=== PATIENT | female | born 1975 | race Caucasian/White ===

== ENCOUNTER 2019-08-31 05:32 | Inpatient (IN) | payer MEDICARE, MEDICAID ==
[2019-08-31] VITALS (48 sets, daily range): BP systolic 71–176; BP diastolic 35–86
[~2019-08-31] VITALS: Ht 157.5 cm; Wt 87.1 kg
[~2019-08-31 05:32] MED LIST: AMIT100T2 PO; ATOR20TA65 PO; DULA1.5P SQ; GABA800T97 PO; HYDR-4009 PO; INSU100I22 SQ; LEVO25TA7 PO; LISI-186 PO; LORA10TA7 PO; METF-416 PO; METO10TA3 PO; PANT40TA4 PO
[2019-08-31] MEDS ORDERED: NORMAL SALINE 0.9% 10 ML SYR ONE (06:13)
[2019-08-31] MEDS ORDERED: LIDOCAINE HCL/EPINEPHRINE 1%-EPI 1:100,000 20 ML VIAL ONE (06:14)
[2019-08-31] MEDS ORDERED: THROMBIN (BOVINE) 5000 UNITS/VIAL TOP ONE (06:14)
[2019-08-31] MEDS ORDERED: BACITRACIN 50,000 UNITS/VIAL ONE (06:14)
[2019-08-31] MEDS ORDERED: FENTANYL CITRATE/PF 50MCG/ML 2ML VIAL ONE (06:43)
[2019-08-31] MEDS ORDERED: MIDAZOLAM HCL 2 MG/2 ML VIAL ONE (06:44)
[2019-08-31] MEDS ORDERED: ROCURONIUM BROMIDE 10MG/ML VIAL 5ML IV ONE ×2 (06:46→07:43)
[2019-08-31] MEDS ORDERED: PROPOFOL 200MG/20ML VIAL IV ONE (06:46)
[2019-08-31] MEDS ORDERED: SUCCINYLCHOLINE CHLORIDE 200MG/10ML IV ONE (06:46)
[2019-08-31] MEDS ORDERED: LIDOCAINE HCL/PF 1% 10 MG/ML 5ML VIAL ONE (06:47)
[2019-08-31] MEDS ORDERED: HYDRALAZINE 20MG/ML VIAL ONE (06:50)
[2019-08-31] MEDS ORDERED: SODIUM CHLORIDE 0.9% 10ML VIAL ONE ×3 (06:50→06:53)
[2019-08-31] MEDS ORDERED: EPHEDRINE SULFATE 50MG/ML VIAL ONE ×2 (06:52→08:29)
[2019-08-31 06:53] LABS: HCG SCREEN NEGATIVE
[2019-08-31] MEDS ORDERED: CEFAZOLIN SODIUM 1000MG/VIAL ONE (06:53)
[2019-08-31] MEDS ORDERED: MORPHINE SULFATE 4 MG/ML CPJ (NOT FOR IM USE) IV PRN (07:15)
[2019-08-31] MEDS ORDERED: ESMOLOL HCL 10MG/ML 10ML VIAL IV ONE (07:45)
[2019-08-31] MEDS ORDERED: LABETALOL HCL 5MG/ML VIAL 20ML IV ONE (07:46)
[2019-08-31] MEDS ORDERED: DEXAMETHASONE 4MG/ML 1ML VIAL ONE (08:03)
[2019-08-31] MEDS ORDERED: GLYCOPYRROLATE 0.2 MG/ML 2ML VIAL ONE ×2 (08:17→08:27)
[2019-08-31] MEDS ORDERED: NEOSTIGMINE METHYLSULFATE 1MG/ML 10 ML VIAL ONE (08:17)
[2019-08-31] MEDS ORDERED: PHENYLEPHRINE HCL 10 MG/ML 1ML (IV VIAL) IV ONE (08:25)
[2019-08-31] MEDS ORDERED: NICARDIPINE 100 MG in SODIUM CHLORIDE 0.9% 60 ML IV PRN (10:15)
[2019-08-31] MEDS ORDERED: HYDROMORPHONE HCL/PF 2MG/ML CPJ IV PRN (10:30)
[2019-08-31] MEDS: DEXT 5%/LACTATED RINGERS 1,000 ML IV SCH ×2 (11:00→17:14)
[2019-08-31] MEDS ORDERED: ONDANSETRON INJ IV PRN (11:15)
[2019-08-31] MEDS ORDERED: MORPHINE PCA 50MG/50ML IV PRN (11:15)
[2019-08-31] MEDS ORDERED: DIPHENHYDRAMINE INJ IV PRN (11:15)
[2019-08-31] MEDS ORDERED: NALOXONE INJ IV PRN (11:15)
[2019-08-31] MEDS: HYDRALAZINE 20MG/ML VIAL IV SCH ×4 (13:25→23:43)
[2019-08-31] MEDS: PANTOPRAZOLE SODIUM 40 MG/VIAL IV SCH (13:38)
[2019-08-31] MEDS ORDERED: CEFAZOLIN SODIUM 1000MG/VIAL IV SCH (14:00)
[2019-08-31] MEDS: CEFAZOLIN 1000MG PREMIX 50 ML IV SCH (15:30)
[2019-08-31] MEDS: HYDROMORPHONE HCL/PF 2MG/ML CPJ IV PRN ×3 (15:42→23:43)
[2019-08-31] MEDS ORDERED: DEXTROSE 50% WATER 50ML SYRINGE IV PRN (16:00)
[2019-08-31] MEDS: BLOOD SUGAR DIAGNOSTIC STRIP TEST SCH ×2 (17:14→21:27)
[2019-08-31] MEDS: METFORMIN HCL 500MG TABLET PO SCH (17:15)
[2019-08-31] MEDS: OXYCODONE HCL/ACETAMINOPHEN 5/325MG TABLET PO PRN ×2 (17:15→21:33)
[2019-08-31] MEDS: INSULIN LISPRO 100 UNITS/ML SUBCUT SCH ×2 (17:16→21:00)
[2019-08-31 20:24] LABS: CHLORIDE 110 mEq/L (98-107)
[2019-08-31 20:30] LABS: BASOPHILS % 0.3 % (0.0-2.0); HEMATOCRIT. 32.3 % (36.0-48.0); HEMOGLOBIN. 10.7 g/dL (12.0-16.0); LYMPHOCYTES % 11.5 % (20.0-50.0); MEAN CORPUSCULAR HEMOGLOBIN 27.6 pg (28.0-32.0); MEAN CORPUSCULAR VOLUME 83.1 fL (81.0-99.0); MEAN PLATELET VOLUME 9.3 fl (7.4-10.4); MONOCYTES % 6.2 % (2.0-8.0); PLATELET 196 x1000/uL (130-400); RED BLOOD CELL COUNT 3.89 mill/uL (4.2-5.4); RED CELL DISTRIBUTION WIDTH 14.6 % (11.6-14.6)
[2019-08-31] MEDS: METOCLOPRAMIDE HCL 10MG TABLET PO SCH (21:27)
[2019-08-31] MEDS: ATORVASTATIN CALCIUM 20MG TABLET PO SCH (21:27)
[2019-08-31] MEDS: AMITRIPTYLINE 25MG TABLET PO SCH (21:27)
[2019-09-01] VITALS (74 sets, daily range): BP systolic 71–151; BP diastolic 31–118
[2019-09-01] MEDS: CEFAZOLIN 1000MG PREMIX 50 ML IV SCH (00:03)
[2019-09-01] MEDS: DEXT 5%/LACTATED RINGERS 1,000 ML IV SCH ×3 (02:06→17:47)
[2019-09-01] MEDS: OXYCODONE HCL/ACETAMINOPHEN 5/325MG TABLET PO PRN ×5 (02:12→22:41)
[2019-09-01] MEDS: HYDRALAZINE 20MG/ML VIAL IV SCH ×5 (03:27→19:54)
[2019-09-01] MEDS: HYDROMORPHONE HCL/PF 2MG/ML CPJ IV PRN ×6 (03:53→20:52)
[2019-09-01] MEDS: BLOOD SUGAR DIAGNOSTIC STRIP TEST SCH ×4 (06:01→20:17)
[2019-09-01] MEDS: LEVOTHYROXINE SODIUM 25MCG TABLET PO SCH (06:01)
[2019-09-01] MEDS: METFORMIN HCL 500MG TABLET PO SCH ×2 (06:01→17:47)
[2019-09-01] MEDS: INSULIN LISPRO 100 UNITS/ML SUBCUT SCH ×4 (06:06→20:17)
[2019-09-01] MEDS: LISINOPRIL 5MG TABLET PO SCH (09:00)
[2019-09-01] MEDS: PANTOPRAZOLE SODIUM 40 MG/VIAL IV SCH (10:36)
[2019-09-01] MEDS: LORATADINE 10MG TABLET PO SCH (10:36)
[2019-09-01] MEDS ORDERED: MORPHINE SULFATE 2 MG/ML CPJ (NOT FOR IM USE) IV NR (11:15)
[2019-09-01] MEDS: ATORVASTATIN CALCIUM 20MG TABLET PO SCH (20:06)
[2019-09-01] MEDS: METOCLOPRAMIDE HCL 10MG TABLET PO SCH (20:06)
[2019-09-01] MEDS: AMITRIPTYLINE 25MG TABLET PO SCH (20:07)
[2019-09-01] MEDS: DIPHENHYDRAMINE 25MG CAPSULE PO PRN (20:18)
[2019-09-02] VITALS (34 sets, daily range): BP systolic 95–172; BP diastolic 36–109
[2019-09-02] MEDS: HYDROMORPHONE HCL/PF 2MG/ML CPJ IV PRN ×7 (00:36→21:01)
[2019-09-02] MEDS: DEXT 5%/LACTATED RINGERS 1,000 ML IV SCH (00:44)
[2019-09-02] MEDS: OXYCODONE HCL/ACETAMINOPHEN 5/325MG TABLET PO PRN ×3 (02:32→14:22)
[2019-09-02] MEDS: HYDRALAZINE 20MG/ML VIAL IV SCH ×5 (03:30→16:00)
[2019-09-02 05:39] LABS: BASOPHILS % 0.4 % (0.0-2.0); EOSINOPHILS % 0.3 % (0.0-5.0); HEMATOCRIT. 30.9 % (36.0-48.0); HEMOGLOBIN. 10.4 g/dL (12.0-16.0); LYMPHOCYTES % 27.4 % (20.0-50.0); MEAN CORPUSCULAR HEMOGLOBIN 28.1 pg (28.0-32.0); MEAN CORPUSCULAR VOLUME 83.2 fL (81.0-99.0); MEAN PLATELET VOLUME 8.9 fl (7.4-10.4); MONOCYTES % 7.5 % (2.0-8.0); NEUTROPHILS % 64.4 % (40.0-76.0); PLATELET 170 x1000/uL (130-400); RED BLOOD CELL COUNT 3.71 mill/uL (4.2-5.4); RED CELL DISTRIBUTION WIDTH 14.4 % (11.6-14.6)
[2019-09-02] MEDS: ONDANSETRON HCL 4MG/2ML INJ IV PRN ×2 (05:47→21:42)
[2019-09-02 05:50] LABS: CHLORIDE 104 mEq/L (98-107)
[2019-09-02] MEDS: BLOOD SUGAR DIAGNOSTIC STRIP TEST SCH ×4 (06:20→21:36)
[2019-09-02] MEDS: INSULIN LISPRO 100 UNITS/ML SUBCUT SCH ×4 (06:20→21:35)
[2019-09-02] MEDS: LEVOTHYROXINE SODIUM 25MCG TABLET PO SCH (06:23)
[2019-09-02] MEDS: METFORMIN HCL 500MG TABLET PO SCH ×2 (06:23→18:48)
[2019-09-02] MEDS: LISINOPRIL 5MG TABLET PO SCH (09:00)
[2019-09-02] MEDS: LORATADINE 10MG TABLET PO SCH (10:48)
[2019-09-02] MEDS: DIPHENHYDRAMINE 25MG CAPSULE PO PRN (10:49)
[2019-09-02] MEDS: PANTOPRAZOLE SODIUM 40 MG/VIAL IV SCH (12:25)
[2019-09-02] MEDS ORDERED: OXYCODONE HCL/ACETAMINOPHEN 5/325MG TABLET PO PRN (16:30)
[2019-09-02] MEDS ORDERED: CLONIDINE 0.1MG TABLET PO PRN (18:30)
[2019-09-02] MEDS: ATORVASTATIN CALCIUM 20MG TABLET PO SCH (21:01)
[2019-09-02] MEDS: AMITRIPTYLINE 25MG TABLET PO SCH (21:01)
[2019-09-02] MEDS: METOCLOPRAMIDE HCL 10MG TABLET PO SCH (21:01)
[2019-09-02] MEDS ORDERED: POTASSIUM CHLORIDE INJ 40 MEQ in DEXT 5% WATER 500 ML IV NR (21:30)
[2019-09-03] VITALS: BP 96/43
[2019-09-03] MEDS: OXYCODONE HCL/ACETAMINOPHEN 5/325MG TABLET PO PRN ×2 (01:00→22:28)
[2019-09-03 04:00] VITALS: BP 111/59
[2019-09-03] MEDS: HYDROMORPHONE HCL/PF 2MG/ML CPJ IV PRN ×4 (04:09→18:53)
[2019-09-03] MEDS: LEVOTHYROXINE SODIUM 25MCG TABLET PO SCH (06:28)
[2019-09-03] MEDS: INSULIN LISPRO 100 UNITS/ML SUBCUT SCH ×4 (06:40→21:00)
[2019-09-03] MEDS: BLOOD SUGAR DIAGNOSTIC STRIP TEST SCH ×4 (06:40→21:18)
[2019-09-03 06:52] LABS: BASOPHILS % 0.4 % (0.0-2.0); HEMATOCRIT. 29.9 % (36.0-48.0); HEMOGLOBIN. 9.9 g/dL (12.0-16.0); LYMPHOCYTES % 33.7 % (20.0-50.0); MEAN CORPUSCULAR HEMOGLOBIN 27.5 pg (28.0-32.0); MEAN CORPUSCULAR VOLUME 83.3 fL (81.0-99.0); MEAN PLATELET VOLUME 8.6 fl (7.4-10.4); MONOCYTES % 6.9 % (2.0-8.0); PLATELET 157 x1000/uL (130-400); RED BLOOD CELL COUNT 3.59 mill/uL (4.2-5.4); RED CELL DISTRIBUTION WIDTH 14.1 % (11.6-14.6)
[2019-09-03 06:54] LABS: CHLORIDE 104 mEq/L (98-107)
[2019-09-03 08:00] VITALS: BP 116/56
[2019-09-03] MEDS: METFORMIN HCL 500MG TABLET PO SCH ×2 (08:51→17:05)
[2019-09-03] MEDS: LORATADINE 10MG TABLET PO SCH (08:52)
[2019-09-03] MEDS: PANTOPRAZOLE SODIUM 40 MG/VIAL IV SCH (08:52)
[2019-09-03] MEDS ORDERED: PANTOPRAZOLE SODIUM 40 MG/VIAL IV SCH (09:00)
[2019-09-03] MEDS: LISINOPRIL 5MG TABLET PO SCH (10:12)
[2019-09-03 12:00] VITALS: BP_SYST 100; BP_SYST 92; BP_DIAS 45; BP_DIAS 51
[2019-09-03 16:00] VITALS: BP 92/51
[2019-09-03 20:19] VITALS: BP 102/52
[2019-09-03] MEDS: METOCLOPRAMIDE HCL 10MG TABLET PO SCH (20:48)
[2019-09-03] MEDS: AMITRIPTYLINE 25MG TABLET PO SCH (20:48)
[2019-09-03] MEDS: ATORVASTATIN CALCIUM 20MG TABLET PO SCH (20:48)
[2019-09-04] VITALS: BP 98/54
[2019-09-04 04:00] VITALS: BP 97/33
[2019-09-04] MEDS: HYDROMORPHONE HCL/PF 2MG/ML CPJ IV PRN (05:40)
[2019-09-04 06:00] VITALS: BP 101/48
[2019-09-04 06:00] LABS: BASOPHILS % 0.3 % (0.0-2.0); EOSINOPHILS % 2.5 % (0.0-5.0); HEMATOCRIT. 29.8 % (36.0-48.0); HEMOGLOBIN. 10.1 g/dL (12.0-16.0); LYMPHOCYTES % 42.1 % (20.0-50.0); MEAN CORPUSCULAR HEMOGLOBIN 28.4 pg (28.0-32.0); MEAN CORPUSCULAR VOLUME 83.6 fL (81.0-99.0); MEAN PLATELET VOLUME 8.9 fl (7.4-10.4); NEUTROPHILS % 49.1 % (40.0-76.0); PLATELET 185 x1000/uL (130-400); RED BLOOD CELL COUNT 3.57 mill/uL (4.2-5.4)
[2019-09-04] MEDS: LEVOTHYROXINE SODIUM 25MCG TABLET PO SCH (06:26)
[2019-09-04] MEDS: BLOOD SUGAR DIAGNOSTIC STRIP TEST SCH (06:37)
[2019-09-04] MEDS: INSULIN LISPRO 100 UNITS/ML SUBCUT SCH (06:38)
[2019-09-04 07:26] LABS: CHLORIDE 105 mEq/L (98-107)
[2019-09-04 08:00] VITALS: BP 110/50
[2019-09-04] MEDS: LISINOPRIL 5MG TABLET PO SCH (08:25)
[2019-09-04] MEDS: LORATADINE 10MG TABLET PO SCH (08:27)
[2019-09-04] MEDS: PANTOPRAZOLE SODIUM 40 MG/VIAL IV SCH (08:27)
[2019-09-04] MEDS: METFORMIN HCL 500MG TABLET PO SCH (08:27)
[2019-09-04 10:14] VITALS: BP 110/50
== END 2019-09-04 12:00 | disposition home or self-care (01) | DRG 460 ==
LOC: OR 05:32 → MICUNO 05:33 → 6EST 09-02 14:58
PROVIDERS: ADMIT Neurological Surgery; ATTEND Neurological Surgery
PROC: 0SG0071 Fusion of Lumbar Vertebral Joint with Autologous Tissue Substitute, Posterior Approach, Posterior Column, Open Approach (ICD-10-PCS; principal; 2019-08-31)
PROC: 0SP304Z Removal of Internal Fixation Device from Lumbosacral Joint, Open Approach (ICD-10-PCS; 2019-08-31)
PROC: BR1B1ZZ Fluoroscopy of Lumbosacral Joint using Low Osmolar Contrast (ICD-10-PCS; 2019-08-31)
DX: T84.226A Displacement of internal fixation device of vertebrae, initial encounter (principal); G99.2 Myelopathy in diseases classified elsewhere; M54.17 Radiculopathy, lumbosacral region; T84.84XA Pain due to internal orthopedic prosthetic devices, implants and grafts, initial encounter; I10 Essential (primary) hypertension; M48.07 Spinal stenosis, lumbosacral region; R16.0 Hepatomegaly, not elsewhere classified; E11.9 Type 2 diabetes mellitus without complications; Y83.8 Other surgical procedures as the cause of abnormal reaction of the patient, or of later complication, without mention of misadventure at the time of the procedure; Y92.89 Other specified places as the place of occurrence of the external cause; Z98.1 Arthrodesis status
CPT/HCPCS: 36415; 71045; 72100; 76000; 80048; 82962; 84703; 85025; 86850; 86900; 88300; 95863; 95925; 95926; 95928; 95929; 95940; 97116; 97162; 97166; 97530; 97760; C9113; J0330; J0360; J0690; J1100; J1170; J1815; J2250; J2270; J2370; J2405; J2704; J2710; J3010; J3480; J3490; J7060; J7121; J8597; Q0163